=== PATIENT | female | born 1970 | race Caucasian/White ===

== ENCOUNTER 2016-11-01 07:48 | Emergency (ER) | payer OTHER ==
[~2016-11-01] VITALS: Ht 165.1 cm; Wt 90.7 kg
[~2016-11-01 07:48] MED LIST: OXYCODONE HCL5 MG PO; PROGESTERONE200 MG PO; PROMETHAZINE HC25 M1 PO; TRAMADOL HCL50 MG PO; TYLENOL EXTRA500 MG PO; VIVELLE-DOT1 EAC1 TD
[2016-11-01] MEDS ORDERED: NORCO 5-325 TA1 EACH PO (08:49)
== END 2016-11-01 09:09 | disposition home or self-care (01) ==
LOC: ED 07:48
DX: S92.351A Displaced fracture of fifth metatarsal bone, right foot, initial encounter for closed fracture (principal); F17.200 Nicotine dependence, unspecified, uncomplicated; Z90.89 Acquired absence of other organs; Z90.710 Acquired absence of both cervix and uterus; Z88.8 Allergy status to other drugs, medicaments and biological substances; W22.8XXA Striking against or struck by other objects, initial encounter
CPT/HCPCS: 73630; 99283

== ENCOUNTER 2017-07-27 18:53 | Emergency (ER) | payer OTHER ==
[~2017-07-27] VITALS: Ht 165.1 cm; Wt 90.7 kg
[~2017-07-27 18:53] MED LIST changes: +NORCO 5-325 TA1 EACH PO
== END 2017-07-27 23:31 | disposition home or self-care (01) ==
LOC: ED 18:53
DX: R10.9 Unspecified abdominal pain (principal); F17.200 Nicotine dependence, unspecified, uncomplicated; Z88.8 Allergy status to other drugs, medicaments and biological substances
CPT/HCPCS: 74176; 81001; 99284

== ENCOUNTER 2019-09-16 23:14 | Emergency (ER) | payer OTHER ==
[~2019-09-16] VITALS: Ht 165.1 cm; Wt 90.7 kg
--- NOTE | 2019-09-17 06:55 | EKG ---
[facility] [address] [place], [place] [address] Signed Normal sinus rhythm Normal ECG No previous ECGs available Confirmed by LOLI LCUERO MD ([id number]) on 09/17/2019 6:55:33 AM Electronically Signed By: LOLI LUCERO MD 09/17/19 0655 PATIENT NAME: MONA KIRKLAND MICHAEL Electrocardiogram DATE OF : 74 PHYSICIAN: LOLI LUCERO MD REPORT #: [id number] REPORT IS CONFIDENTIAL AND NOT TO BE RELEASED WITHOUT AUTHORIZATION
== END 2019-09-17 01:38 | disposition home or self-care (01) ==
LOC: ED 23:14
DX: R07.9 Chest pain, unspecified (principal); F17.200 Nicotine dependence, unspecified, uncomplicated; Z88.8 Allergy status to other drugs, medicaments and biological substances
CPT/HCPCS: 71045; 80053; 83735; 84484; 85025; 93005; 93010; 99285-25